=== PATIENT | female | born 1980 | race Caucasian/White ===

== ENCOUNTER 2018-11-17 14:16 | Emergency (ER) | payer SELFPAY ==
[~2018-11-17] VITALS: Ht 177.8 cm; Wt 64.4 kg
[2018-11-17 14:26] VITALS: BP 102/66
--- NOTE | 2018-11-17 15:36 | NUR ---
Patient ambulated to bed 2. RN evaluating patient at bedside.
--- NOTE | 2018-11-17 15:50 | NUR ---
C/O HEADACHE X3 DAYS, PRIMARILY ON L SIDE, + BLURRY VISION WITH L EYE, + NAUSEA, DENIES V/D/FEVER. TOOK ADVIL MIGRAINE AT HOME WITH LITTLE RELIEF. SKIN IS PINK/WARM/DRY; AAOX4 WITH EVEN AND STEADY GAIT; VSS; PATIENT POSITIONED FOR COMFORT; HOB ELEVATED; BEDRAILS UP X1; RPOVIDED PT WITH BLANKET, BED DOWN. ER MD MADE AWARE OF PT STATUS.
--- NOTE | 2018-11-17 16:30 | NUR ---
Patient discharged with v/s stable. Written and verbal after care instructions given and explained. Patient alert, oriented and verbalized understanding of instructions. Ambulatory with steady gait. All questions addressed prior to discharge. ID band removed. Patient advised to follow up with PMD. Rx of IMITREX AND FIORICET given. Patient educated on indication of medication including possible reaction and side effects. Opportunity to ask questions provided and answered.
[2018-11-17] MEDS ORDERED: ONDANSETRON 4 MG ODT PO ONE (16:35)
[2018-11-17] MEDS ORDERED: KETOROLAC 60 MG/2 ML VIAL IM ONE (16:35)
[2018-11-17] MEDS ORDERED: METOCLOPRAMIDE 10 MG/2 ML INJ VIAL IM ONE (16:35)
[2018-11-17] MEDS ORDERED: MORPHINE SULFATE 4 MG/ML SYR IM ONE (17:15)
[2018-11-17] MEDS ORDERED: SUMAtriptan 6 MG/0.5 ML VIAL SUBQ ONE (17:25)
[2018-11-17 17:45] VITALS: BP 110/67
== END 2018-11-17 16:30 | disposition home or self-care (01) ==
LOC: MED 14:16
DX: G43.909 Migraine, unspecified, not intractable, without status migrainosus (principal)
CPT/HCPCS: 96372; 99283; J1885; J2765; J3030; Q0162

== ENCOUNTER 2022-01-04 15:40 | Emergency (ER) | payer OTHER, BC ==
[~2022-01-04] VITALS: Ht 177.8 cm; Wt 68.3 kg
[2022-01-04 16:07] VITALS: BP 117/82
--- NOTE | 2022-01-04 19:17 | NUR ---
Patient discharged with v/s stable. Written and verbal after care instructions given and explained. Patient verbalized understanding. Ambulatory with steady gait. All questions addressed prior to discharge. Advised to follow up with PMD. A/OX4, VSS, AMBULATORY, UNLABORED BREATHING, AND CALM DEMEANOR. NO NURSING INTERVENTIONS NEEDED
== END 2022-01-04 19:17 | disposition home or self-care (01) ==
LOC: MED 15:40
DX: O9A.211 Injury, poisoning and certain other consequences of external causes complicating pregnancy, first trimester (principal); O26.891 Other specified pregnancy related conditions, first trimester; R10.9 Unspecified abdominal pain; Z3A.01 Less than 8 weeks gestation of pregnancy; V89.2XXA Person injured in unspecified motor-vehicle accident, traffic, initial encounter; Y93.89 Activity, other specified; Y92.89 Other specified places as the place of occurrence of the external cause; Y99.8 Other external cause status
CPT/HCPCS: 76801; 81002; 81025; 99284; Q0092

== ENCOUNTER 2022-09-16 14:02 | Emergency (ER) | payer BC, OTHER ==
[~2022-09-16] VITALS: Ht 177.8 cm; Wt 76.7 kg
[2022-09-16 14:05] VITALS: BP 105/75
--- NOTE | 2022-09-16 14:50 | NUR ---
42YO FEMALE PT C/O HEADACHE, FEVER AND NAUSEA X4DAYS. REPORTS VAG BLEEDING YESTERDAY AND GIVING ON 08/28/21. STATES MILD RELIEF AFTER MOTRIN. DENIES BLEEDING AT THIS TIME. DENIES V/D, CHEST PAIN OR ANYONE SICK AT HOME. PT AAOX4, RESPIRATIONS EVEN AND UNLABORED. HX:DENIES NKA
[2022-09-16] MEDS ORDERED: NACL 0.9% 1,000 ML IV ONE (15:00)
[2022-09-16] MEDS ORDERED: KETOROLAC 15 MG/ML VIAL IVP ONE (15:00)
[2022-09-16] MEDS ORDERED: METOCLOPRAMIDE 10 MG/2 ML INJ VIAL IVP ONE (15:00)
--- NOTE | 2022-09-16 15:23 | NUR ---
pt swabbed for covid(philippe) and flu. walked and handed to lab
[2022-09-16 15:34] LABS: BASOPHILS % (AUTO) 0.4 % (0.0-2.0); HEMATOCRIT 42.1 % (36-48); HEMOGLOBIN 14.4 g/dL (12.0-16.0); LYMPHOCYTES # (AUTO) 0.7 K/uL (2.5-16.5); LYMPHOCYTES % (AUTO) 7.7 % (20.5-51.1); MEAN CORPUSCULAR HEMOGLOBIN 30 pg (27-31); MEAN CORPUSCULAR HGB CONC 34 g/dL (33-37); MEAN CORPUSCULAR VOLUME 88.2 fL (80-94); MONOCYTES # (AUTO) 0.3 K/uL (0.8-1.0); MONOCYTES % (AUTO) 2.9 % (1.7-9.3); NEUTROPHILS # (AUTO) 8.4 K/uL (1.8-7.7); PLATELET COUNT (AUTO) 230 K/uL (140-450); RED BLOOD CELL COUNT(AUTO) 4.77 MIL/uL (4.20-5.40); RED CELL DISTRIBUTION WIDTH 13.5 % (11.6-13.7); WHITE BLOOD COUNT (AUTO) 9.5 K/uL (4.8-10.8)
[2022-09-16 16:10] LABS: ALBUMIN 3.7 g/dL (3.4-5.0); ANION GAP 13.9 (8-16); CARBON DIOXIDE 24.1 mmol/L (21-32); CREATININE 0.8 mg/dL (0.6-1.3); TOTAL BILIRUBIN 0.3 mg/dL (0.0-1.0)
[2022-09-16 17:20] LABS: BLOOD, URINE MODERATE (NEGATIVE); UGLUCOSE 1+ (NEGATIVE)
[2022-09-16 17:21] LABS: BILIRUBIN,URINE 2+ (NEGATIVE); LEUKOCYTE ESTERASE ,URINE 2+ (NEGATIVE); NITRITE, URINE NEGATIVE (NEGATIVE)
[2022-09-16 17:24] LABS: WBC,URINE 20-60 /HPF (0-5)
[2022-09-16 17:25] LABS: APPEARANCE,URINE CLOUDY (CLEAR); TRICHOMONAS,URINE None Seen /HPF (None Seen); YEAST,URINE None Seen /HPF (None Seen)
[2022-09-16 17:29] VITALS: BP 131/79
[2022-09-16 17:30] LABS: COLOR,URINE DARK YELLOW (YELLOW)
--- NOTE | 2022-09-16 17:59 | NUR ---
IV removed, catheter intact and site benign. Applied folded 4x4 gauze and tape to stop bleeding.
[2022-09-16] MEDS ORDERED: ACET-2619 PO (18:09)
[2022-09-16] MEDS ORDERED: CEPH-588 PO (18:09)
[2022-09-16] MEDS ORDERED: cephALEXin 500 MG CAP PO ONE (18:15)
--- NOTE | 2022-09-16 18:25 | NUR ---
Patient discharged with v/s stable. Written and verbal after care instructions FOR UTI AND ANTIBIOTIC MEDICATION given and explained. Patient alert, oriented and verbalized understanding of instructions. Ambulatory with steady gait. All questions addressed prior to discharge. ID band removed. Patient advised to follow up with PMD. Rx of KEFLEX AND TYLENOL given. . Opportunity to ask questions provided and answered.
--- NOTE | 2022-09-16 18:26 | NUR ---
The patient's care was reviewed and supervised by Hailey Lopes RN.
== END 2022-09-16 18:25 | disposition home or self-care (01) ==
LOC: MED 14:02
DX: N39.0 Urinary tract infection, site not specified (principal); Z20.822 Contact with and (suspected) exposure to COVID-19; G43.909 Migraine, unspecified, not intractable, without status migrainosus
CPT/HCPCS: 36415; 80053; 81001; 81025; 85025; 87086; 87426; 87804; 96361; 96374; 99285; J1885; J7030; J2765